=== PATIENT | female | born 1980 | race African-American/Black ===

== ENCOUNTER 2023-04-20 14:50 | Day surgery (SDC) | payer OTHER ==
[2023-04-20] MEDS ORDERED: IRON SUCROSE COMPLEX 200 MG in SODIUM CHLORIDE 100 ML IVPB ONE (15:00)
[2023-04-20 16:59] VITALS: TEMP 98.6
[2023-04-20 17:00] VITALS: BP 152/83; PULSE 82; RESP 18
== END 2023-04-20 16:40 | disposition home or self-care (01) ==
LOC: J7W 14:50 → JONCNONCHE 14:50
PROVIDERS: ATTEND Internal Medicine Hematology & Oncology
PROC: 3E033GC Introduction of Other Therapeutic Substance into Peripheral Vein, Percutaneous Approach (ICD-10-PCS; principal; 2023-04-20)
DX: D50.9 Iron deficiency anemia, unspecified (principal)
CPT/HCPCS: 96365

== ENCOUNTER 2023-04-27 14:58 | Day surgery (SDC) | payer OTHER ==
[~2023-04-27 14:58] MED LIST: IRON SUCROSE INJECTION 200 MG in SODIUM CHLORIDE 100 ML IVPB ONE
[2023-04-27 17:23] VITALS: RESP 18; TEMP 98.8
[2023-04-27 17:47] VITALS: BP 149/89; PULSE 83
== END 2023-04-27 17:40 | disposition home or self-care (01) ==
LOC: JONCNONCHE 14:58 → J7W 14:59 → JONCNONCHE 17:40
PROVIDERS: ATTEND Internal Medicine Hematology & Oncology
PROC: 3E033GC Introduction of Other Therapeutic Substance into Peripheral Vein, Percutaneous Approach (ICD-10-PCS; principal; 2023-04-27)
DX: D50.9 Iron deficiency anemia, unspecified (principal)
CPT/HCPCS: 96365; J1756

== ENCOUNTER 2023-05-04 15:06 | Day surgery (SDC) | payer OTHER ==
[2023-05-04 17:24] VITALS: BP 151/94; PULSE 81; RESP 18; TEMP 98.6
== END 2023-05-04 16:30 | disposition home or self-care (01) ==
LOC: JONCNONCHE 15:06 → J7W 15:07 → JONCNONCHE 16:30
PROVIDERS: ATTEND Internal Medicine Hematology & Oncology
PROC: 3E033GC Introduction of Other Therapeutic Substance into Peripheral Vein, Percutaneous Approach (ICD-10-PCS; principal; 2023-05-04)
DX: D50.9 Iron deficiency anemia, unspecified (principal)
CPT/HCPCS: 96365; J1756

== ENCOUNTER 2023-05-11 15:06 | Day surgery (SDC) | payer OTHER ==
[2023-05-11 17:08] VITALS: BP 143/83; PULSE 87; RESP 18; TEMP 98.8
== END 2023-05-11 16:25 | disposition home or self-care (01) ==
LOC: JONCNONCHE 15:06 → J7W 15:07 → JONCNONCHE 16:25
PROVIDERS: ATTEND Internal Medicine Hematology & Oncology
PROC: 3E033GC Introduction of Other Therapeutic Substance into Peripheral Vein, Percutaneous Approach (ICD-10-PCS; principal; 2023-05-11)
DX: D50.9 Iron deficiency anemia, unspecified (principal)
CPT/HCPCS: 96365; J1756

== ENCOUNTER 2023-07-27 15:26 | Day surgery (SDC) | payer OTHER ==
[~2023-07-27 15:26] MED LIST changes: -IRON SUCROSE INJECTION 200 MG in SODIUM CHLORIDE 100 ML IVPB ONE; +IRON SUCROSE INJECTION 300 MG in SODIUM CHLORIDE 250 ML IVPB ONE
[2023-07-27 16:31] VITALS: TEMP 98.6
[2023-07-27 17:38] VITALS: BP 151/92; PULSE 87; RESP 18
== END 2023-07-27 17:41 | disposition home or self-care (01) ==
LOC: JONCNONCHE 15:26 → J7W 15:27 → JONCNONCHE 17:41
PROVIDERS: ATTEND Internal Medicine Hematology & Oncology
PROC: 3E033GC Introduction of Other Therapeutic Substance into Peripheral Vein, Percutaneous Approach (ICD-10-PCS; principal; 2023-07-27)
DX: D50.9 Iron deficiency anemia, unspecified (principal)
CPT/HCPCS: 96365; J1756

== ENCOUNTER 2023-08-03 14:57 | Day surgery (SDC) | payer OTHER ==
[2023-08-03 16:59] VITALS: TEMP 98.2
[2023-08-03 17:29] VITALS: BP 141/88; PULSE 86; RESP 18
== END 2023-08-03 17:34 | disposition home or self-care (01) ==
LOC: JONCNONCHE 14:57
PROVIDERS: ATTEND Internal Medicine Hematology & Oncology
PROC: 3E033GC Introduction of Other Therapeutic Substance into Peripheral Vein, Percutaneous Approach (ICD-10-PCS; principal; 2023-08-03)
DX: D50.9 Iron deficiency anemia, unspecified (principal)
CPT/HCPCS: 96365; J1756

== ENCOUNTER 2023-08-10 14:15 | Day surgery (SDC) | payer OTHER ==
[2023-08-10 17:37] VITALS: RESP 18; TEMP 98.3
[2023-08-10 17:41] VITALS: BP 160/82; PULSE 79
== END 2023-08-10 15:50 | disposition home or self-care (01) ==
LOC: JONCNONCHE 14:15
PROVIDERS: ATTEND Internal Medicine Hematology & Oncology
PROC: 3E033GC Introduction of Other Therapeutic Substance into Peripheral Vein, Percutaneous Approach (ICD-10-PCS; principal; 2023-08-10)
DX: D50.9 Iron deficiency anemia, unspecified (principal)
CPT/HCPCS: 96365; J1756

== ENCOUNTER 2023-08-17 13:00 | Day surgery (SDC) | payer OTHER ==
[2023-08-17 16:55] VITALS: BP 155/90; PULSE 109; RESP 18; TEMP 98.3
== END 2023-08-17 14:45 | disposition home or self-care (01) ==
LOC: JONCNONCHE 13:00 → J7W 13:00 → JONCNONCHE 14:45
PROVIDERS: ATTEND Internal Medicine Hematology & Oncology
PROC: 3E033GC Introduction of Other Therapeutic Substance into Peripheral Vein, Percutaneous Approach (ICD-10-PCS; principal; 2023-08-17)
DX: D50.9 Iron deficiency anemia, unspecified (principal)
CPT/HCPCS: 96365; J1756